=== PATIENT | male | born 1985 ===

== ENCOUNTER → 2023-10-07 14:05 | Outpatient (REF) | payer OTHER, SELFPAY | LOC: HWRAD 14:05 | PROVIDERS: ATTENDING PHYSICIAN Orthopaedic Surgery | DX: S82.842A Displaced bimalleolar fracture of left lower leg, initial encounter for closed fracture (principal); S82.442A Displaced spiral fracture of shaft of left fibula, initial encounter for closed fracture; M79.662 Pain in left lower leg; M25.572 Pain in left ankle and joints of left foot; S93.432A Sprain of tibiofibular ligament of left ankle, initial encounter | CPT/HCPCS: 73700 ==